=== PATIENT | female | born 2000 | race Two or more races ===

== ENCOUNTER 2022-02-06 20:26 | Emergency (ER) | payer BC, OTHER ==
[2022-02-06 21:28] LABS: BLOOD UREA NITROGEN,BUN 9 mg/dL (7.0-18.0); CARBON DIOXIDE,CO2 21.8 mmol/L (21.0-32.0); CHLORIDE,CL 104 mmol/L (98-107); GLUCOSE RANDOM 99 mg/dL (74-106); LIPASE 62 U/L (73-393); POTASSIUM,K 3.1 mmol/L (3.5-5.1); SODIUM,NA 139 mmol/L (136-145)
[2022-02-06] MEDS ORDERED: Potassium Chloride 20 MEQ Tab.ER PO ONE (21:41)
[2022-02-06] MEDS ORDERED: Alum Hydro/Mag Hydro/Simeth XS 15 ML, Metoclopramide 5 MG, Lidocaine 2% 5 ML PO ONE ×3 (21:50)
== END 2022-02-06 22:17 | disposition home or self-care (01) ==
LOC: MW.ED 20:26
DX: R10.13 Epigastric pain (principal); E87.6 Hypokalemia
CPT/HCPCS: 36415; 80053; 81001; 81025; 83690; 85025; 87338; 99284; A9270

== ENCOUNTER 2022-02-22 18:37 | Emergency (ER) | payer OTHER ==
[2022-02-22] MEDS ORDERED: Sodium Chloride 0.9% 1,000 ML IV ONE (18:56)
[2022-02-22] MEDS ORDERED: Sodium Chloride 0.9% 10 ML Syringe FLUSH PRN (18:56)
[2022-02-22] MEDS ORDERED: Sodium Chloride 0.9% 2.5 ML Syringe FLUSH PRN (18:56)
[2022-02-22] MEDS ORDERED: Alum Hydro/Mag Hydro/Simeth XS 15 ML, Lidocaine 2% 5 ML PO ONE ×2 (19:18)
[2022-02-22 20:12] LABS: BLOOD UREA NITROGEN,BUN 9 mg/dL (7.0-18.0); CARBON DIOXIDE,CO2 23.7 mmol/L (21.0-32.0); CHLORIDE,CL 103 mmol/L (98-107); GLUCOSE RANDOM 86 mg/dL (74-106); LIPASE 61 U/L (73-393); POTASSIUM,K 3.8 mmol/L (3.5-5.1); SODIUM,NA 139 mmol/L (136-145)
[2022-02-22] MEDS ORDERED: Iopamidol 755 MG/ML 500 ML Multipack Bottle IVPUSH STA (20:44)
[2022-02-22] MEDS ORDERED: Ciprofloxacin 500 MG Tab PO ONE (21:43)
[2022-02-22] MEDS ORDERED: metroNIDAZOLE 250 MG Tab PO ONE (21:48)
== END 2022-02-22 22:14 | disposition home or self-care (01) ==
LOC: MW.ED 18:37
DX: K52.9 Noninfective gastroenteritis and colitis, unspecified (principal); R10.13 Epigastric pain; Z79.899 Other long term (current) drug therapy
CPT/HCPCS: 36415; 74177; 80053; 81001; 81025; 83690; 85025; 87045; 87046; 87328; 87329; 87449; 87899; 96360; 99284; A9270; J7030; Q9967

== ENCOUNTER 2022-03-06 23:00 | Inpatient (IN) | payer OTHER ==
[2022-03-06] MEDS ORDERED: Sodium Chloride 0.9% 2.5 ML Syringe FLUSH PRN (23:20)
[2022-03-06] MEDS ORDERED: Sodium Chloride 0.9% 10 ML Syringe FLUSH PRN (23:20)
[2022-03-06] MEDS ORDERED: Sodium Chloride 0.9% 1,000 ML IV ONE (23:20)
[2022-03-07 00:18] LABS: BLOOD UREA NITROGEN,BUN 12 mg/dL (7.0-18.0); CARBON DIOXIDE,CO2 22.5 mmol/L (21.0-32.0); CHLORIDE,CL 106 mmol/L (98-107); GLUCOSE RANDOM 95 mg/dL (74-106); LIPASE 121 U/L (73-393); POTASSIUM,K 3.6 mmol/L (3.5-5.1); SODIUM,NA 140 mmol/L (136-145)
[2022-03-07] MEDS ORDERED: Iopamidol 755 MG/ML 500 ML Multipack Bottle IVPUSH STA (01:03)
[2022-03-07] MEDS ORDERED: metroNIDAZOLE/Normal Saline 500 MG in Premix Bag 1 BAG IV ONE (01:41)
[2022-03-07] MEDS ORDERED: Ciprofloxacin in D5W 400 MG in Premix Bag 1 BAG IV SCH ×2 (01:45)
[2022-03-07] MEDS ORDERED: Ondansetron 4 MG/2 ML SDV IVPUSH ONE (01:54)
[2022-03-07] MEDS ORDERED: Ketorolac 30 MG/ML SDV IVPUSH ONE (01:54)
[2022-03-07] MEDS ORDERED: Acetaminophen 325 MG Tab PO PRN (04:07)
[2022-03-07] MEDS ORDERED: Ondansetron 4 MG/2 ML SDV IVPUSH PRN (04:08)
[2022-03-07] MEDS ORDERED: Morphine 2 MG/ML SYRINGE IVPUSH PRN (04:08)
[2022-03-07] MEDS: Vancomycin 125 MG Cap PO SCH ×5 (04:47→23:31)
[2022-03-07] MEDS: Sodium Chloride 0.9% 1,000 ML IV SCH ×3 (04:48→21:00)
[2022-03-07] MEDS ORDERED: metroNIDAZOLE/Normal Saline 500 MG in Premix Bag 1 BAG IV SCH (07:35)
[2022-03-07 08:34] LABS: BLOOD UREA NITROGEN,BUN 9 mg/dL (7.0-18.0); CARBON DIOXIDE,CO2 24.1 mmol/L (21.0-32.0); CHLORIDE,CL 109 mmol/L (98-107); GLUCOSE RANDOM 101 mg/dL (74-106); POTASSIUM,K 4.2 mmol/L (3.5-5.1); SODIUM,NA 141 mmol/L (136-145)
[2022-03-07] MEDS ORDERED: Albuterol/Ipratropium 3.0-0.5 MG/3 ML Neb Soln NEB PRN (09:44)
[2022-03-08] MEDS: Sodium Chloride 0.9% 1,000 ML IV SCH ×2 (05:19→13:20)
[2022-03-08] MEDS: Vancomycin 125 MG Cap PO SCH ×4 (05:19→23:26)
[2022-03-08 07:17] LABS: BLOOD UREA NITROGEN,BUN 4 mg/dL (7.0-18.0); CARBON DIOXIDE,CO2 21.5 mmol/L (21.0-32.0); CHLORIDE,CL 108 mmol/L (98-107); GLUCOSE RANDOM 77 mg/dL (74-106); POTASSIUM,K 3.5 mmol/L (3.5-5.1); SODIUM,NA 140 mmol/L (136-145)
[2022-03-09] MEDS: Vancomycin 125 MG Cap PO SCH ×2 (05:55→11:12)
[2022-03-09 06:06] LABS: BLOOD UREA NITROGEN,BUN 6 mg/dL (7.0-18.0); CARBON DIOXIDE,CO2 25.6 mmol/L (21.0-32.0); CHLORIDE,CL 109 mmol/L (98-107); GLUCOSE RANDOM 100 mg/dL (74-106); POTASSIUM,K 4.2 mmol/L (3.5-5.1); SODIUM,NA 141 mmol/L (136-145)
== END 2022-03-09 13:40 | disposition home or self-care (01) | DRG 372 ==
LOC: MW.ED 23:00 → MW.MS 03-07 01:54
PROVIDERS: ADMIT Internal Medicine; ATTEND Internal Medicine
DX: A04.72 Enterocolitis due to Clostridium difficile, not specified as recurrent (principal); K51.00 Ulcerative (chronic) pancolitis without complications; I88.0 Nonspecific mesenteric lymphadenitis; Z20.822 Contact with and (suspected) exposure to COVID-19; K62.89 Other specified diseases of anus and rectum
CPT/HCPCS: 36415; 74177; 74177-26; 80053; 81003; 81025; 83605; 83630; 83690; 85025; 85027; 85610; 85730; 87040; 87045; 87046; 87324; 87449; 87899; 96360; 99285-25; A9270-GY; J0744; J1885; J2405; J3490; J7030; Q9967; U0002